=== PATIENT | male | born 1950 | race Caucasian/White ===

== ENCOUNTER → 2018-06-19 | Outpatient (REF) ==
[2018-06-19 17:29] LABS: PSA-TOTAL 0.47 ng/mL (0-4)
== END ==
LOC: ZLAB.WCH 16:36
PROVIDERS: Internal Medicine
DX: Z01.89 Encounter for other specified special examinations (principal)
CPT/HCPCS: G0103

== ENCOUNTER → 2021-09-05 | Outpatient (CLI) | payer MEDICARE, OTHER | LOC: COL.PUL 10:57 | DX: R06.09 Other forms of dyspnea (principal) ==